=== PATIENT | female | born 1990 | race Caucasian/White ===

== ENCOUNTER 2017-06-19 13:40 | Emergency (ER) | payer OTHER | END 2017-06-19 16:59 | disposition home or self-care (01) | LOC: D.ER 13:40 | DX: M25.551 Pain in right hip (principal); G40.909 Epilepsy, unspecified, not intractable, without status epilepticus; N18.9 Chronic kidney disease, unspecified; F17.200 Nicotine dependence, unspecified, uncomplicated ==